=== PATIENT | male | born 1965 | race African-American/Black ===

== ENCOUNTER 2018-12-30 20:03 | Emergency (ER) | payer MEDICAID ==
[~2018-12-30] VITALS: Ht 172.7 cm; Wt 55.0 kg
[~2018-12-30 20:03] MED LIST: AMLO2.5T45; TRIA1CAP35
[2018-12-30 20:07] VITALS: BP 175/98
== END 2018-12-31 00:01 | disposition home or self-care (01) ==
LOC: ER 20:03
DX: S00.211A Abrasion of right eyelid and periocular area, initial encounter (principal); F10.129 Alcohol abuse with intoxication, unspecified; F12.10 Cannabis abuse, uncomplicated; I10 Essential (primary) hypertension; Y90.0 Blood alcohol level of less than 20 mg/100 ml; W18.39XA Other fall on same level, initial encounter; Y93.89 Activity, other specified; Y92.89 Other specified places as the place of occurrence of the external cause; Y99.8 Other external cause status
CPT/HCPCS: 70486; 99284

== ENCOUNTER 2020-02-15 10:45 | Emergency (ER) | payer MEDICAID ==
[~2020-02-15] VITALS: Ht 175.3 cm; Wt 54.0 kg
[2020-02-15] MEDS ORDERED: HYDROCODONE/ACETAMINOPHEN 5/325MG TABLET PO STA (11:05)
[2020-02-15 11:40] VITALS: BP 132/77
== END 2020-02-15 12:34 | disposition home or self-care (01) ==
LOC: ER 10:45
DX: M54.42 Lumbago with sciatica, left side (principal); M16.12 Unilateral primary osteoarthritis, left hip
CPT/HCPCS: 73502; 99283